=== PATIENT | female | born 1955 | race Caucasian/White ===

== ENCOUNTER 2017-05-17 12:44 | Emergency (ER) | payer OTHER ==
[2017-05-17 13:14] VITALS: BP 122/69
--- NOTE | 2017-05-17 13:43 | UC ---
Complaint Female HPI - HPI Summary HPI Summary: Patient laurel reports I think I have a bladder infection. It's burning like crazy." Headache, "I just feel funny all over", suprapubic, urinary frequency, urinary urgency, and dysuria worsening over one day. Last UTI "a month ago" and "at least six or seven, maybe even more" in the last year. Denies fever, abdominal pain, back pain, NVD, gross hematuria, or abnormal vaginal discharge/ itching/odor/pain. - History Of Current Complaint Chief Complaint: UCGU Stated Complaint: URINARY Time Seen by Provider: 05/17/17 13:37 Hx Obtained From: Patient ?: No Onset/Duration: Sudden Onset, Lasting Days Timing: Constant Severity Initially: Mild Severity Currently: Moderate Character: Burning Aggravating Factor(s): Urination Associated Signs And Symptoms: Positive: Back Pain, Nausea - Allergies/Home Medications Allergies/Adverse Reactions: Allergies Allergy/AdvReac Type Severity Reaction Status Date / Time No Known Allergies Allergy Verified 05/17/17 13:06 Home Medications: Home Medications ALPRAZolam TAB* [Xanax TAB*] 0.25 mg PO Q8H PRN 05/17/17 [History Confirmed ] Calcium Carbonate-Vitamin D [Calcium 600 + D] 1 tab PO DAILY 05/17/17 [History Confirmed 05/17/17] Citalopram TAB* [CeleXA TAB*] 40 mg PO DAILY 05/17/17 [History Confirmed ] Fenofibrate(NF) [Tricor(NF)] 48 mg PO DAILY 05/17/17 [History Confirmed 05/17/17 ] Ibuprofen TAB* [Advil TAB*] 400 mg PO Q6H PRN 05/17/17 [History Confirmed ] Levothyroxine TAB* [Synthroid TAB*] 25 mcg PO DAILY 05/17/17 [History Confirmed 05/17/17] Lisinopril TAB* [Prinivil TAB*] 10 mg PO DAILY 05/17/17 [History Confirmed 05/17] Multivitamins/Minerals TAB* [Thera M Plus TAB*] 1 tab PO DAILY 05/17/17 [ History Confirmed 05/17/17] metFORMIN* [Glucophage 500 MG TAB *] 500 mg PO BID 05/17/17 [History Confirmed 05/17/17] PMH/Surg Hx/FS Hx/Imm Hx Previously Healthy: Yes - Surgical History Surgical History: Yes Surgery Procedure, Year, and Place: Urethral Dilations, Right TKA, Left Femur Fracture with Tr Placement, Right Oopherectomy, C-Sections x 4 - Family History Known Family History: Positive: Hypertension - Social History Alcohol Use: None Substance Use Type: None Smoking Status (MU): Never Smoked Tobacco - Immunization History Most Recent Influenza Vaccination: May 2017 Review of Systems Constitutional: Negative Skin: Negative Eyes: Negative ENT: Negative Respiratory: Negative Cardiovascular: Negative Gastrointestinal: Negative Genitourinary: Dysuria, Hematuria, Frequency, Urgency Motor: Negative Neurovascular: Negative Musculoskeletal: Negative Neurological: Negative Psychological: Negative Is Patient Immunocompromised?: No All Other Systems Reviewed And Are Negative: Yes Physical Exam Triage Information Reviewed: Yes Appearance: Well-Appearing, Well-Nourished, Pain Distress Vital Signs: Initial Vital Signs Temp 97.4 F 05/17/17 13:02 Pulse 70 05/17/17 13:02 Resp 16 05/17/17 13:02 BP 122/69 05/17/17 13:02 Pulse Ox 100 05/17/17 13:02 Vital Signs Reviewed: Yes Eye Exam: Normal Eyes: Positive: Conjunctiva Clear ENT Exam: Normal Dental Exam: Normal Neck exam: Normal Neck: Positive: Supple, Nontender, No Lymphadenopathy Respiratory: Positive: Chest non-tender, Lungs clear, Normal breath sounds Cardiovascular Exam: Normal Cardiovascular: Positive: RRR, No Murmur, Pulses Normal Abdominal Exam: Normal Abdomen Description: Positive: Nontender, No Organomegaly, Soft Bowel Sounds: Positive: Present Musculoskeletal Exam: Normal Musculoskeletal: Positive: Strength Intact, ROM Intact, No Edema Neurological Exam: Normal Psychological Exam: Normal Skin Exam: Normal Complaint Female Dx - Course Course Of Treatment: hx obtained, exam performed, meds reviewed, treated for UTI - Differential Dx/Diagnosis Differential Diagnosis/HQI/PQRI: Ureteral Stone Provider Diagnoses: UTI Discharge - Discharge Plan Condition: Stable Disposition: HOME Patient Education Materials: Urinary Tract Infection in Women (ED) Referrals: Adolfo Lucero MD [Primary Care Provider] - Additional Instructions: 1. Take the medication as prescribed. 2. FOllow up with any worsening symtpoms.
== END 2017-05-17 14:02 | disposition home or self-care (01) ==
LOC: UCCORT 12:44
DX: N39.0 Urinary tract infection, site not specified (principal)
CPT/HCPCS: 81003; 87077; 87086; 87186; 99202; G0463